=== PATIENT | female | born 1955 | race Caucasian/White ===

== ENCOUNTER 2016-12-29 11:02 | Outpatient (CLI) | payer OTHER ==
--- NOTE | 2017-01-01 16:11 | Mammography Report ---
DIGITAL SCREENING MAMMOGRAM: 12/29/2016 CLINICAL INDICATION: A 61-year-old nulliparous patient, for screening. COMPARISON: 12/2015, 09/2014, 05/2013, 04/2012, 02/2011, 02/2009. TECHNIQUE: Routine CC and MLO projections were obtained of the breasts. FINDINGS: The breasts again demonstrate heterogeneously dense fibroglandular parenchyma. In the left lower posterior breast, only seen on the oblique projection, is a possible developing density. Furth er evaluation with spot compression view, laterally exaggerated craniocaudal view, and possible ultra sound is recommended. No mammographically suspicious findings are appreciated in the right breast. IMPRESSION: INCOMPLETE EXAMINATION. RECOMMENDATION: ADDITIONAL EVALUATION OF THE LEFT BREAST ABOVE. BIRADS CATEGORY 0-INCOMPLETE. STANDARD QUALIFYING STATEMENTS 1. This examination was reviewed with the aid of Computer-Aided Detection (CAD). 2. A negative or benign imaging report should not delay biopsy if clinically suspicious findings are present. Consider surgical consultation if warranted. More than 5% of cancers are not identified by i maging. 3. Dense breasts may obscure an underlying neoplasm. JOB #: [id number] EXT JOB #:[id number]
== END 2016-12-29 11:03 | disposition home or self-care (01) ==
LOC: DI.N 11:02
PROVIDERS: ATTEND Obstetrics & Gynecology
DX: Z12.31 Encounter for screening mammogram for malignant neoplasm of breast (principal); R92.8 Other abnormal and inconclusive findings on diagnostic imaging of breast
CPT/HCPCS: 77067

== ENCOUNTER 2017-03-14 13:00 | Outpatient (CLI) | payer OTHER | END 2017-03-14 13:01 | disposition home or self-care (01) | LOC: LAB.WCP 13:00 | PROVIDERS: ATTEND Family Medicine | DX: R10.2 Pelvic and perineal pain (principal) | CPT/HCPCS: 87086 ==

== ENCOUNTER 2017-11-09 09:35 | Outpatient (CLI) | payer OTHER ==
[2017-11-09 12:17] LABS: HGB - HEMOGLOBIN 13.1 g/dL (12.0-16.0); MEAN CORPUSCULAR HEMOGLOBIN 30.3 pg (27.0-31.0); MEAN CORPUSCULAR HGB CONC 34.7 g/dL (32.0-36.0); MEAN CORPUSCULAR VOLUME 87.1 fL (81.0-99.0); MEAN PLATELET VOLUME 8.8 fL (7.9-10.8); RED BLOOD COUNT 4.33 10^6/uL (4.20-5.40); RED CELL DISTRIBUTION WIDTH 14.2 % (12.0-15.0); WHITE BLOOD COUNT 4.9 x10^3/uL (4.8-10.8)
[2017-11-09 13:39] LABS: % IRON SATURATION 22 % (20-50); IRON 84 ug/dL (28-170); TOTAL IRON BINDING CAPACITY 375 ug/dL (250-450); TRANSFERRIN 268 mg/dL (192-382)
== END 2017-11-09 09:36 | disposition home or self-care (01) ==
LOC: LAB.WCP 09:35
PROVIDERS: ATTEND Nurse Practitioner
DX: R53.83 Other fatigue (principal); E03.9 Hypothyroidism, unspecified
CPT/HCPCS: 36415; 83540; 84443; 84466; 85027

== ENCOUNTER 2018-09-27 10:59 | Outpatient (CLI) | payer OTHER ==
--- NOTE | 2018-09-27 14:39 | Mammography Report ---
Reason: SCREENING MAMMO Procedure Date: 09/27/2018 Accession Number: [id number] / [id number] Procedure: MGN - Screening Mammo Dig Bilat CPT Code: FULL RESULT: EXAM: Screening Mammo Dig Bilat DATE: 09/27/2018 11:39 AM CLINICAL HISTORY: Routine screening. No reported personal or family history of breast cancer. TECHNIQUE: (B) - Bilateral CC and MLO views were obtained. COMPARISON: Unilateral left diagnostic mammogram 01/17/2017. PARENCHYMAL PATTERN: (A) - The breasts demonstrate scattered fibroglandular densities bilaterally. FINDINGS: Bilateral breasts: There is a stable 6 mm oval asymmetry medial posterior left breast. There are no suspicious masses, calcifications, or areas of distortion. IMPRESSION: Benign findings. BI-RADS category 2. RECOMMENDATION: (ANNUAL) - Recommend routine annual screening mammography. BI-RADS CATEGORY: (2) - Benign Findings. STANDARD QUALIFYING STATEMENTS: 1. This examination was not reviewed with the aid of Computer-Aided Detection (CAD). 2. A negative or benign imaging report should not preclude biopsy if clinically suspicious findings are present. 3. Dense breasts may obscure an underlying neoplasm. 4. This examination was reviewed without the aid of 3D breast imaging (tomosynthesis).
== END 2018-09-27 11:00 | disposition home or self-care (01) ==
LOC: DI.N 10:59
DX: Z12.31 Encounter for screening mammogram for malignant neoplasm of breast (principal)
CPT/HCPCS: 77067

== ENCOUNTER 2018-11-21 17:42 | Outpatient (CLI) | payer OTHER ==
--- NOTE | 2018-11-22 08:59 | Ultrasound Report ---
Reason: FAM HX OF OVARIAN CA Procedure Date: 11/21/2018 Accession Number: [id number] / [id number] Procedure: US - Pelvic w/Transvaginal CPT Code: FULL RESULT: EXAM: PELVIC ULTRASOUND EXAM DATE: 11/21/2018 06:40 PM. CLINICAL HISTORY: Family history of ovarian cancer. COMPARISON: Pelvic ultrasound 12/24/2006 2:01 PM. TECHNIQUE: Realtime transabdominal pelvic scan performed to identify the uterus and adnexa and as an overview of other pelvic structures, followed by transvaginal scan to provide greater detail of the uterus and adnexa, with static image documentation. FINDINGS: Uterus: 8.0 x 2.2 x 4.3 cm, volume 40 cc. Anteverted position. Normal overall size and echotexture. Masses: 1. Left fundal pedunculated subserosal fibroid 2.5 x 1.6 x 2.6 cm. 2. Posterior body subserosal fibroid 0.8 x 0.4 x 0.9 cm. Endometrium: 5 mm. An echogenic but poorly vascularized nodule within the anterior fundus measures 4 x 5 x 6 mm. Cervix: Unremarkable. Right Ovary: 1.5 x 1.0 x 1.0 cm, volume 0.7 cc. Normal echotexture and blood flow. Left Ovary: 0.8 x 1.0 x 0.8 cm, volume 0.3 cc. Normal echotexture and blood flow. Free Fluid: None. Other: None. IMPRESSION: 1. 2 subserosal fibroids measuring 2.6 and 0.9 cm respectively. 2. 6 mm echogenic poorly vascularized fundal endometrial lesion may represent a polyp, less likely blood clot. 3. Ovaries within normal limits. RADIA
== END 2018-11-21 17:43 | disposition home or self-care (01) ==
LOC: DI 17:42
PROVIDERS: ATTEND Obstetrics & Gynecology
DX: D25.2 Subserosal leiomyoma of uterus (principal); N85.9 Noninflammatory disorder of uterus, unspecified
CPT/HCPCS: 76830; 76856

== ENCOUNTER 2019-06-25 08:00 | Outpatient (CLI) | payer BC, MEDICARE, OTHER | END 2019-06-25 23:59 | disposition home or self-care (01) | LOC: LAB.R 08:00 | PROVIDERS: ATTEND Family Medicine | DX: R19.4 Change in bowel habit (principal) | CPT/HCPCS: 81599; 83630; 87045; 87046; 87329; 87493 ==

== ENCOUNTER 2019-11-05 12:33 | Outpatient (CLI) | payer MEDICARE | END 2019-11-05 23:59 | disposition home or self-care (01) | LOC: LAB.WCP 12:33 | PROVIDERS: ATTEND Family Medicine | DX: R19.4 Change in bowel habit (principal) | CPT/HCPCS: 36415; 83516 ==

== ENCOUNTER 2019-12-03 01:05 | Outpatient (CLI) | payer MEDICARE ==
--- NOTE | 2019-12-03 10:53 | XRAY Report ---
PROCEDURE: Hip 1 View LT INDICATIONS: LEFT HIP PAIN TECHNIQUE: 2 views of the hip were acquired. COMPARISON: None FINDINGS: Bones: No fractures or dislocations. No suspicious bony lesions. The visualized pelvic ring appear s intact. Soft tissues: No suspicious soft tissue calcifications or masses. IMPRESSION: No trauma found. Minimal joint space narrowing present bilaterally. No subluxation. Reviewed by: Ankit Ochoa MD on 12/03/2019 10:52 AM PDT Approved by: Ankit Ochoa MD on 12/03/2019 10:52 AM PDT Station ID: [id number]
== END 2019-12-03 23:59 | disposition home or self-care (01) ==
LOC: DI.WCP 01:05
PROVIDERS: ATTEND Family Medicine
DX: M25.552 Pain in left hip (principal)

== ENCOUNTER 2020-11-08 14:04 | Outpatient (CLI) | payer MEDICARE | END 2020-11-08 23:59 | disposition home or self-care (01) | LOC: LAB.N 14:04 | PROVIDERS: ATTEND Family Medicine | DX: R07.0 Pain in throat (principal); Z20.822 Contact with and (suspected) exposure to COVID-19 | CPT/HCPCS: 87070; U0004 ==

== ENCOUNTER 2020-11-26 14:45 | Outpatient (CLI) | payer MEDICARE ==
--- NOTE | 2020-11-26 17:28 | Ultrasound Report ---
PROCEDURE: Pelvic w/Transvaginal INDICATIONS: THICKENED ENDOMETRIUM TECHNIQUE: Real-time scanning was performed of the pelvic organs, with image documentation. Additional endovagi nal scanning was necessary due to incomplete visualization of the adnexal and endometrial structures by transabdominal scanning. COMPARISON: Pelvic ultrasound 11/21/2018. FINDINGS: No pathologic free abdominal or pelvic fluid. Uterus: Uterus is normal in size at 8.5 x 3 x 4 cm. The endometrium measures 5.5 mm in combined thi ckness. However, there is focal endometrial thickening in the uterine fundus measuring 0.6 x 0.6 x 0 .6 cm. No definite internal vascularity is seen. A left fundal pedunculated subserosal fibroid is see n measuring 3.1 x 2.4 x 1.9 cm (previously 3.3 x 1.8 x 1.5 cm). A posterior midline subserosal fibroi d measures 1.1 x 0.6 x 0.3 cm (previously 0.8 x 0.4 x 0.9 cm). Ovaries: The right ovary measures 2.5 x 1.1 x 1.2 cm (1.7 mm). The left ovary measures 1.9 x 0.7 x 1 .1 cm (0.7 mL). IMPRESSION: 1.Focal echogenic lesion in the fundal endometrium measuring up to 6 mm does not appear significantly changed in size when compared to the ultrasound from 11/21/2018, possibly representing a polyp or fo aman endometrial hypertrophy. 2.Stable subserosal uterine fibroids. Reviewed by: Lokesh Boykin MD on 11/26/2020 5:27 PM PDT Approved by: Lokesh Boykin MD on 11/26/2020 5:27 PM PDT Station ID: [id number]
== END 2020-11-26 14:46 | disposition home or self-care (01) ==
LOC: DI 14:45
PROVIDERS: ATTEND Nurse Practitioner
DX: N85.00 Endometrial hyperplasia, unspecified (principal); N85.9 Noninflammatory disorder of uterus, unspecified; D25.2 Subserosal leiomyoma of uterus

== ENCOUNTER 2021-01-25 09:18 | Outpatient (CLI) | payer MEDICARE ==
--- NOTE | 2021-01-26 14:04 | Mammography Report ---
BILATERAL DIGITAL SCREENING MAMMOGRAM 3D/2D: 01/25/2021 CLINICAL: Routine screening. Comparison is made to exams dated: 09/27/2018 mammogram, 01/17/2017 ultrasound, 01/17/2017 mammogram, 12/29/2016 mammogram, 12/23/2015 mammogram, and 09/25/2014 mammogram - [facility]. The tissue of both breasts is heterogeneously dense. This may lower the sensitivity of mammography. No significant masses, calcifications, or other findings are seen in either breast. There has been no significant interval change. IMPRESSION: NEGATIVE There is no mammographic evidence of malignancy. A 1 year screening mammogram is recommended. This exam was interpreted at Station ID: [id number]. NOTE: For mammograms, a report in lay terms will be sent to the patient. Approximately 15% of breast malignancies will not be visualized mammographically. In the management of a palpable breast mass, a negative mammogram must not discourage biopsy of a clinically suspicious lesion. Electronically Signed By: Earnest Champagne M.D. ddp/penrad:01/25/2021 16:25:25 ACR BI-RADS Category 1: Negative 3341F PARENCHYMAL PATTERN: (D) - The breast(s) demonstrate(s) heterogeneously dense fibroglandular stacie champion. BI-RADS CATEGORY: (1) - 1 RECOMMENDATION: (ANNUAL) - Recommend routine annual screening mammography. [id number] 1 year screening LATERALITY: (B)
== END 2021-01-25 09:19 | disposition home or self-care (01) ==
LOC: DI.N 09:18
PROVIDERS: ATTEND Obstetrics & Gynecology
DX: Z12.31 Encounter for screening mammogram for malignant neoplasm of breast (principal)

== ENCOUNTER 2021-08-05 07:22 | Outpatient (CLI) | payer MEDICARE ==
[2021-08-05 12:28] LABS: BASOPHILS % (AUTO) 0.6 %; EOSINOPHILS # (AUTO) 0.3 10^3/uL (0.0-0.7); EOSINOPHILS % (AUTO) 4.5 %; HCT - HEMATOCRIT 38.6 % (37.0-47.0); HGB - HEMOGLOBIN 12.6 g/dL (12.0-16.0); LYMPHOCYTES # (AUTO) 2.5 10^3/uL (1.5-3.5); LYMPHOCYTES % (AUTO) 34.3 %; MEAN CORPUSCULAR HEMOGLOBIN 29.3 pg (27.0-31.0); MEAN CORPUSCULAR HGB CONC 32.6 g/dL (32.0-36.0); MEAN CORPUSCULAR VOLUME 89.8 fL (81.0-99.0); MEAN PLATELET VOLUME 10.7 fL (7.9-10.8); MONOCYTES # (AUTO) 0.8 10^3/uL (0.0-1.0); NEUTROPHILS # (AUTO) 3.6 10^3/uL (1.5-6.6); NEUTROPHILS % (AUTO) 49.3 %; PLT - PLATELET COUNT 287 10^3/uL (130-450); RED CELL DISTRIBUTION WIDTH 13.9 % (12.0-15.0); WHITE BLOOD COUNT 7.2 x10^3/uL (4.8-10.8)
[2021-08-05 12:40] LABS: ALBUMIN/GLOBULIN RATIO 1.4 (1.0-2.2); ALKALINE PHOSPHATASE 51 IU/L (42-121); ALT ALANINE AMINOTRANSFERASE 23 IU/L (10-60); AST ASPARTATE AMINOTRANSFERASE 24 IU/L (10-42); BILIRUBIN,TOTAL 0.3 mg/dL (0.2-1.0); BUN - BLOOD UREA NITROGEN 14 mg/dL (6-20); CALCIUM 9.5 mg/dL (8.5-10.3); CARBON DIOXIDE - CO2 28 mmol/L (21-32); CHLORIDE 103 mmol/L (101-111); CHOL/HDL RATIO 4.3 (<4.4); CHOLESTEROL 239 mg/dL; CREATININE 0.9 mg/dL (0.4-1.0); GFR - MDRD 62 (>89); GLUCOSE 103 mg/dL (70-100); HDL CHOLESTEROL 55 mg/dL; LDL CHOLESTEROL,CALCULATED 164 mg/dL; POTASSIUM 4.1 mmol/L (3.5-5.0); SODIUM 139 mmol/L (135-145); TOTAL PROTEIN 6.9 g/dL (6.7-8.2); TRIGLYCERIDES 102 mg/dL; VLDL CHOLESTEROL 20 mg/dL
[2021-08-05 12:47] LABS: THYROID STIMULATING HORMONE 6.79 uIU/mL (0.34-5.60)
[2021-08-05 13:19] LABS: FREE T4 (FREE THYROXINE) 0.69 ng/dL (0.58-1.64)
[2021-08-06 05:13] LABS: HCV AB <0.1 s/co ratio (0.0-0.9)
== END 2021-08-05 07:23 | disposition home or self-care (01) ==
LOC: LAB.N 07:22
PROVIDERS: ATTEND Nurse Practitioner
DX: Z01.84 Encounter for antibody response examination (principal); R53.83 Other fatigue; Z13.220 Encounter for screening for lipoid disorders
CPT/HCPCS: 36415; 80053; 80061; 83721; 84439; 84443; 85025; 86803

== ENCOUNTER 2022-02-16 10:53 | Outpatient (CLI) | payer MEDICARE ==
--- NOTE | 2022-02-17 12:49 | Mammography Report ---
BILATERAL DIGITAL SCREENING MAMMOGRAM 3D/2D: 02/16/2022 CLINICAL: Routine screening. Comparison is made to exams dated: 01/25/2021 mammogram, 09/27/2018 mammogram, 01/17/2017 ultrasound, 01/17/2017 mammogram, 12/29/2016 mammogram, and 12/23/2015 mammogram - [facility]. Both breasts are heterogeneously dense, which may obscure small masses (category c / 51-75% glandular tissue). There is possible architectural distortion in the right breast at 11 o'clock middle depth. No other significant masses, calcifications, or other findings are seen in either breast. IMPRESSION: INCOMPLETE: NEEDS ADDITIONAL IMAGING EVALUATION The possible architectural distortion in the right breast is indeterminate. Additional views with po ssible ultrasound are recommended. Based on the Tyrer Cuzick model (a risk assessment model) the patients lifetime risk is 10.3% and he r 10 year risk is 5.4%. According to the ACR, ACS, and NCCN guidelines, an annual breast MRI exam lindsey ng with mammogram is recommended if the patients lifetime risk is 20% or greater. This exam was interpreted at Station ID: [id number]. NOTE: For mammograms, a report in lay terms will be sent to the patient. Approximately 15% of breast malignancies will not be visualized mammographically. In the management of a palpable breast mass, a negative mammogram must not discourage biopsy of a clinically suspicious lesion. Electronically Signed By: Arturo Estrada M.D., jr/gerry:02/16/2022 15:24:21 ACR BI-RADS Category 0: Incomplete 3340F PARENCHYMAL PATTERN: (D) - The breast(s) demonstrate(s) heterogeneously dense fibroglandular parozzy champion. BI-RADS CATEGORY: (0) - 0 Mammo and [place] [id number] Immediate follow-up LATERALITY: (B)
== END 2022-02-16 10:54 | disposition home or self-care (01) ==
LOC: DI.N 10:53
PROVIDERS: ATTEND Nurse Practitioner
DX: Z12.31 Encounter for screening mammogram for malignant neoplasm of breast (principal); R92.8 Other abnormal and inconclusive findings on diagnostic imaging of breast

== ENCOUNTER 2022-02-21 09:21 | Outpatient (CLI) | payer MEDICARE | END 2022-02-21 09:22 | disposition home or self-care (01) | LOC: DI 09:21 | PROVIDERS: ATTEND Physician Assistant | DX: R06.00 Dyspnea, unspecified (principal); R00.1 Bradycardia, unspecified | CPT/HCPCS: 93306 ==

== ENCOUNTER 2022-03-03 10:49 | Outpatient (CLI) | payer MEDICARE ==
--- NOTE | 2022-03-06 10:25 | Ultrasound Report ---
LIMITED ULTRASOUND OF RIGHT BREAST: 03/03/2022 CLINICAL: Patient returns today to evaluate an architectural distortion in the right breast. Comparison is made to exams dated: 03/03/2022 mammogram, 02/16/2022 mammogram, 01/25/2021 mammogram, mammogram, 01/17/2017 ultrasound, and 01/17/2017 mammogram - [facility]. Real-time ultrasound of the right breast 11 o'clock region was performed. Sanchez scale images of the r eal-time examination were reviewed. IMPRESSION: NEGATIVE There is no sonographic evidence of malignancy. There is no abnormality seen in the right breast to correspond with the mammography finding which lik janet represents normal fibroglandular tissue. Return to annual mammogram screening schedule is recommended. This exam was interpreted at Station ID: [id number]. Electronically Signed By: William Taylor M.D. lc/:03/03/2022 12:48:25 Ultrasound BI-RADS: 1 Negative BI-RADS CATEGORY: (1) - 1 Mammogram [id number] return to screening LATERALITY: (B)
--- NOTE | 2022-03-06 10:25 | Mammography Report ---
UNILATERAL RIGHT DIGITAL DIAGNOSTIC MAMMOGRAM 3D/2D: 03/03/2022 CLINICAL: Patient returns today to evaluate an architectural distortion in the right breast. Comparison is made to exams dated: 02/16/2022 mammogram, 01/25/2021 mammogram, 09/27/2018 mammogram, 1 03/20/2016 mammogram, 12/23/2015 mammogram, and 12/29/2016 mammogram - [facility]. The right breast is heterogeneously dense, which may obscure small masses (category c / 51-75% glandu lar tissue). There is possible architectural distortion in the right breast at 11 o'clock middle depth. This is l ess prominent. No other significant masses or calcifications are seen in the breast. IMPRESSION: INCOMPLETE: NEEDS ADDITIONAL IMAGING EVALUATION The possible architectural distortion in the right breast is indeterminate. An ultrasound is recomme nded. Based on the Tyrer Cuzick model (a risk assessment model) the patients lifetime risk is 10.3% and he r 10 year risk is 5.4%. According to the ACR, ACS, and NCCN guidelines, an annual breast MRI exam lindsey ng with mammogram is recommended if the patients lifetime risk is 20% or greater. This exam was interpreted at Station ID: [id number]. NOTE: For mammograms, a report in lay terms will be sent to the patient. Approximately 15% of breast malignancies will not be visualized mammographically. In the management of a palpable breast mass, a negative mammogram must not discourage biopsy of a clinically suspicious lesion. Electronically Signed By: William Taylor M.D. lc/:03/03/2022 12:47:22 ACR BI-RADS Category 0: Incomplete 3340F PARENCHYMAL PATTERN: (D) - The breast(s) demonstrate(s) heterogeneously dense fibroglandular parenchy ma. BI-RADS CATEGORY: (0) - 0 Ultrasound [id number] Immediate follow-up LATERALITY: (B)
== END 2022-03-03 10:50 | disposition home or self-care (01) ==
LOC: DI 10:49
PROVIDERS: ATTEND Physician Assistant
DX: R92.8 Other abnormal and inconclusive findings on diagnostic imaging of breast (principal)

== ENCOUNTER 2022-09-28 07:59 | Outpatient (CLI) | payer MEDICARE ==
[2022-09-28 13:01] LABS: BASOPHILS # (AUTO) 0.1 10^3/uL (0.0-0.1); EOSINOPHILS # (AUTO) 0.3 10^3/uL (0.0-0.7); EOSINOPHILS % (AUTO) 4.3 %; HGB - HEMOGLOBIN 13.5 g/dL (12.0-16.0); LYMPHOCYTES # (AUTO) 1.9 10^3/uL (1.5-3.5); LYMPHOCYTES % (AUTO) 31.1 %; MEAN CORPUSCULAR HEMOGLOBIN 28.9 pg (27.0-31.0); MEAN CORPUSCULAR HGB CONC 32.1 g/dL (32.0-36.0); MEAN CORPUSCULAR VOLUME 89.9 fL (81.0-99.0); MEAN PLATELET VOLUME 10.9 fL (7.9-10.8); MONOCYTES # (AUTO) 0.7 10^3/uL (0.0-1.0); MONOCYTES % (AUTO) 11.6 %; NEUTROPHILS # (AUTO) 3.2 10^3/uL (1.5-6.6); NEUTROPHILS % (AUTO) 51.7 %; PLT - PLATELET COUNT 259 10^3/uL (130-450); RED BLOOD COUNT 4.67 10^6/uL (4.20-5.40); RED CELL DISTRIBUTION WIDTH 14.4 % (12.0-15.0); WHITE BLOOD COUNT 6.1 x10^3/uL (4.8-10.8)
[2022-09-28 13:17] LABS: % IRON SATURATION 21 % (20-50); ALBUMIN/GLOBULIN RATIO 1.5 (1.0-2.2); ALKALINE PHOSPHATASE 54 IU/L (42-121); ALT ALANINE AMINOTRANSFERASE 34 IU/L (10-60); AST ASPARTATE AMINOTRANSFERASE 23 IU/L (10-42); BILIRUBIN,TOTAL 0.4 mg/dL (0.2-1.0); BUN - BLOOD UREA NITROGEN 17 mg/dL (6-20); CALCIUM 9.5 mg/dL (8.5-10.3); CARBON DIOXIDE - CO2 29 mmol/L (21-32); CHLORIDE 105 mmol/L (101-111); CHOL/HDL RATIO 5.6 (<4.4); CHOLESTEROL 258 mg/dL; CREATININE 0.8 mg/dL (0.6-1.3); GFR - MDRD 71 (>89); GLUCOSE 102 mg/dL (74-104); HDL CHOLESTEROL 46 mg/dL; IRON 79 ug/dL (50-212); LDL CHOLESTEROL,CALCULATED 155 mg/dL; LDL/HDL RATIO 3.4 (<4.4); POTASSIUM 4.7 mmol/L (3.5-4.5); SODIUM 137 mmol/L (135-145); THYROID STIMULATING HORMONE 4.93 uIU/mL (0.34-5.60); TOTAL IRON BINDING CAPACITY 372 ug/dL (250-450); TOTAL PROTEIN 6.7 g/dL (6.4-8.9); TRANSFERRIN 266 mg/dL (203-362); TRIGLYCERIDES 287 mg/dL (48-352); VLDL CHOLESTEROL 57 mg/dL
[2022-09-28 13:24] LABS: FERRITIN 41.1 ng/mL (11.0-306.8)
[2022-09-28 14:36] LABS: ESTIMATED AVERAGE GLUCOSE 128 mg/dL (70-100); HEMOGLOBIN A1c% 6.1 % (4.27-6.07)
== END 2022-09-28 08:00 | disposition home or self-care (01) ==
LOC: LAB.N 07:59
PROVIDERS: ATTEND Nurse Practitioner
DX: E78.5 Hyperlipidemia, unspecified (principal); D64.9 Anemia, unspecified; R73.03 Prediabetes; F41.9 Anxiety disorder, unspecified
CPT/HCPCS: 36415; 80053; 80061; 82607; 82728; 83036; 83540; 83721; 84443; 84466; 85025

== ENCOUNTER 2022-10-17 14:49 | Outpatient (CLI) | payer MEDICARE ==
--- NOTE | 2022-10-17 15:36 | Ultrasound Report ---
PROCEDURE: Pelvic w/Transvaginal INDICATIONS: THICKENED ENDOMETRIUM TECHNIQUE: Real-time scanning was performed of the pelvic organs, with image documentation. Additional endovagi nal scanning was necessary due to incomplete visualization of the adnexal and endometrial structures by transabdominal scanning. COMPARISON: Pelvic ultrasound 11/18/2021, 11/21/2018 FINDINGS: Uterus: Uterus is anteverted and normal in size at 5.5 x 2.9 x 4.1 cm. The endometrium measures 6 m m in combined thickness. There is a focus of increased echogenicity within the endometrium measuring approximately 6 mm. Unchanged appearance of heterogeneous echogenicity within the fundus and posteri bhavna uterine regions most consistent with fibroids. Ovaries: The right ovary measures 1.5 x 0.9 x 0.8 cm, with a calculated ovarian volume of 0.6 cc. T he left ovary measures 1.5 x 0.9 x 0.5 cm, with a calculated ovarian volume of 0.4 cc. The ovaries h ave a normal sonographic appearance. Less than 12 follicles can be seen in each ovary. No adnexal m asses are seen. No cystic lesions measuring greater than 3 cm. Other: No pathologic free abdominal or pelvic fluid. IMPRESSION: Fibroids are unchanged. Focus of endometrial echogenicity is unchanged compared to prior exam. This is suspected to represent a polyp given stability since 2019. Reviewed by: Vicki Camargo MD on 10/17/2022 3:35 PM PDT Approved by: Vicki Camargo MD on 10/17/2022 3:35 PM PDT Station ID: [id number]
== END 2022-10-17 14:50 | disposition home or self-care (01) ==
LOC: DI 14:49
PROVIDERS: ATTEND Nurse Practitioner
DX: N85.00 Endometrial hyperplasia, unspecified (principal); D25.9 Leiomyoma of uterus, unspecified

== ENCOUNTER 2023-03-22 15:11 | Outpatient (CLI) | payer MEDICARE ==
--- NOTE | 2023-03-22 16:09 | XRAY Report ---
PROCEDURE: Knee 3V LT INDICATIONS: PATELLOFEMORAL DISORDER OF LEFT KNEE TECHNIQUE: 3 views of the knee(s) were acquired. COMPARISON: None. FINDINGS: Bones: No fractures or dislocations. Joint spaces are maintained. Mild to moderate lateral patellar tilt and subluxation, best seen on the patellar sunrise view. No suspicious bony lesions. Soft tissues: Small knee joint effusion. No suspicious soft tissue calcifications or masses. IMPRESSION: 1.No acute bony abnormality. 2.[id number]-wm-hfwocpza lateral patellar tilt and subluxation. Reviewed by: Karol Perkins MD on 03/22/2023 4:08 PM PST Approved by: Karol Perkins MD on 03/22/2023 4:08 PM PST Station ID: [id number]
== END 2023-03-22 15:12 | disposition home or self-care (01) ==
LOC: DI 15:11
PROVIDERS: ATTEND Family Medicine
DX: S83.012A Lateral subluxation of left patella, initial encounter (principal)

== ENCOUNTER 2023-04-03 08:00 | Outpatient (CLI) | payer MEDICARE ==
--- NOTE | 2023-04-03 20:18 | XRAY Report ---
PROCEDURE: Knee 2 View LT INDICATIONS: LEFT KNEE PAIN, BILAT AP, LEFT PA TUNNEL TECHNIQUE: 3 views of the knee was obtained. COMPARISON: None FINDINGS: Bones: No fractures or dislocations. No suspicious bony lesions. Medial and lateral compartmental j oint space narrowing Soft tissues: No knee joint effusion. No suspicious soft tissue calcifications or masses. IMPRESSION: Medial and lateral compartmental moderate interspace narrowing without marginal osteophyte Reviewed by: Fercho Cedillo MD on 04/03/2023 7:17 PM AKST Approved by: Fercho Cedillo MD on 04/03/2023 7:17 PM AKST Station ID: [id number]
== END 2023-04-03 23:59 | disposition home or self-care (01) ==
LOC: DI.WOS 08:00
PROVIDERS: ATTEND Physician Assistant Surgical
DX: M17.12 Unilateral primary osteoarthritis, left knee (principal)